=== PATIENT | female | born 1945 | race Caucasian/White ===

== ENCOUNTER 2020-11-14 13:09 | Emergency (ER) | payer MEDICARE, BC ==
[2020-11-14 14:05] LABS: #Basophils 0.1 thou/uL (0.0-0.2); #Eosinphils 0.3 thou/uL (0.0-0.7); #Lymphocytes 0.8 thou/uL (1.20-3.40); #Monocytes 0.5 thou/uL (0.11-0.59); #Neutrophils 4.9 thou/uL (1.40-6.50); %Eosinophils 4.4 % (0.0-10.0); %Lymphocytes 12.1 % (21.0-51.0); %Monocytes 7.2 % (0.0-10.0); %Neutrophils 75.3 % (42.0-75.0); Hemoglobin 12.2 g/dL (12.0-16.0); Mean Corpuscular HGB CONC 33.4 g/dL (32.0-36.0); Mean Corpuscular Hemoglobin 30.6 pg (27.0-31.0); Mean Corpuscular Volume 91.7 fL (78.0-98.0); Mean Platelet Volume 8.9 fL (7.4-10.4); Platelet Count 211 thou/uL (130-400); RBC Distribution Width 10.7 % (11.5-14.5); Red Blood Cell (RBC) Count 3.98 mill/uL (4.20-5.40); White Blood Cell (WBC) Count 6.5 thou/uL (4.8-10.8)
[2020-11-14] MEDS ORDERED: Aspirin Chewable 81 MG TAB ONE (14:17)
[2020-11-14 14:38] LABS: ALT (SGPT) 12 U/L (8-55); AST (SGOT) 17 U/L (5-34); Albumin 4.4 g/dL (3.4-4.8); Alkaline Phosphatase 54 U/L (40-110); Anion Gap 15 mmol/L (10-20); BUN (Urea Nitrogen) 28 mg/dL (9.8-20.1); Bilirubin, Total 0.7 mg/dL (0.2-1.2); CK (CPK) 48 U/L (29-168); Calc. Creatinine Clearance 0 mL/min (70-130); Calcium 9.6 mg/dL (7.8-10.44); Carbon Dioxide 25 mmol/L (23-31); Chloride 96 mmol/L (98-107); Globulin 2.3 g/dL (2.4-3.5); Glucose 96 mg/dL (83-110); Potassium 4.6 mmol/L (3.5-5.1); Protein, Total 6.7 g/dL (5.8-8.1); Sodium 131 mmol/L (136-145)
== END 2020-11-14 16:30 | disposition short-term general hospital (02) ==
LOC: MADERS 13:09
DX: R00.1 Bradycardia, unspecified (principal); M81.0 Age-related osteoporosis without current pathological fracture; Z79.82 Long term (current) use of aspirin; Z79.899 Other long term (current) drug therapy
CPT/HCPCS: 71045; 80053; 82550; 83605; 84484; 85025; 93005

== ENCOUNTER 2022-03-09 14:13 | Emergency (ER) | payer MEDICARE, BC ==
[2022-03-09] MEDS ORDERED: hydrALAZINE 10 MG TAB ONE ×2 (15:41→17:30)
[2022-03-09 17:02] LABS: ALT (SGPT) 16 U/L (8-55); AST (SGOT) 24 U/L (5-34); Albumin 4.4 g/dL (3.4-4.8); Alkaline Phosphatase 69 U/L (40-110); Anion Gap 13 mmol/L (10-20); BUN (Urea Nitrogen) 21 mg/dL (9.8-20.1); Bilirubin, Total 0.8 mg/dL (0.2-1.2); Calc. Creatinine Clearance 0 mL/min (70-130); Calcium 9.5 mg/dL (7.8-10.44); Carbon Dioxide 27 mmol/L (23-31); Chloride 99 mmol/L (98-107); Estimated GFR 50; Globulin 2.4 g/dL (2.4-3.5); Glucose 89 mg/dL (83-110); Potassium 4.5 mmol/L (3.5-5.1); Protein, Total 6.8 g/dL (5.8-8.1); Sodium 134 mmol/L (136-145)
[2022-03-09 19:03] LABS: Bilirubin Negative (Negative); Blood, Urine Negative (Negative); Clarity Clear (Clear); Glucose, Urine (Dipstick) Negative (Negative); Ketone, Urine Negative (Negative); Leukocyte Trace (Negative); Nitrite Negative (Negative); Protein, Urine (Dipstick) Negative (Neg-Trace); Specific Gravity, Urine 1.015 (1.005-1.030); Urobilinogen 0.2 mg/dL (Less than 2)
[2022-03-09 19:13] LABS: Bacteria/HPF Rare-Few HPF (None Seen); RBC/HPF 0-3 HPF (0-3); Squamous Epithelial 0-3 HPF (0-3); WBC/HPF 0-3 HPF (0-3)
[2022-03-09] MEDS ORDERED: Acetaminophen 500 MG TAB ONE (19:15)
== END 2022-03-09 19:39 | disposition home or self-care (01) ==
LOC: MADERS 14:13
DX: I10 Essential (primary) hypertension (principal); Z79.82 Long term (current) use of aspirin; Z79.899 Other long term (current) drug therapy
CPT/HCPCS: 36415; 70450; 80053; 81003; 81015

== ENCOUNTER 2022-11-25 09:50 | Emergency (ER) | payer MEDICARE, BC ==
[2022-11-25] MEDS ORDERED: Loperamide HCl 2 MG CAP ONE (11:13)
[2022-11-25] MEDS ORDERED: Sodium Chloride 0.9% 1,000 ML ONE ×2 (11:13→12:08)
[2022-11-25] MEDS ORDERED: Acetaminophen 325 MG TAB ONE (11:13)
[2022-11-25] MEDS ORDERED: Ondansetron PF 4 MG/2 ML Vial ONE (11:13)
[2022-11-25 11:26] LABS: #Lymphocytes 0.5 thou/uL (1.20-3.40); #Monocytes 0.3 thou/uL (0.11-0.59); #Neutrophils 3.5 thou/uL (1.40-6.50); %Basophils 0.7 % (0.0-1.0); %Lymphocytes 11.7 % (21.0-51.0); %Monocytes 6.4 % (0.0-10.0); %Neutrophils 81.3 % (42.0-75.0); Hematocrit 33.4 % (36.0-47.0); Hemoglobin 11.8 g/dL (12.0-16.0); Mean Corpuscular HGB CONC 35.3 g/dL (32.0-36.0); Mean Corpuscular Hemoglobin 31.2 pg (27.0-31.0); Mean Corpuscular Volume 88.3 fl (78.0-98.0); Mean Platelet Volume 10.3 fL (7.4-10.4); Platelet Count 143 10x3/uL (130-400); RBC Distribution Width 11.5 % (11.5-14.5); Red Blood Cell (RBC) Count 3.78 mill/uL (4.20-5.40); White Blood Cell (WBC) Count 4.3 10x3/uL (4.8-10.8)
[2022-11-25 11:37] LABS: ALT (SGPT) 16 U/L (8-55); AST (SGOT) 29 U/L (5-34); Albumin 4.2 g/dL (3.4-4.8); Alkaline Phosphatase 59 U/L (40-110); Anion Gap 17 mmol/L (10-20); BUN (Urea Nitrogen) 13 mg/dL (9.8-20.1); Bilirubin, Total 0.5 mg/dL (0.2-1.2); Calc. Creatinine Clearance 0 mL/min (70-130); Calcium 8.8 mg/dL (7.8-10.44); Carbon Dioxide 23 mmol/L (23-31); Chloride 84 mmol/L (98-107); Estimated GFR 61; Globulin 2.4 g/dL (2.4-3.5); Glucose 124 mg/dL (83-110); Potassium 2.8 mmol/L (3.5-5.1); Protein, Total 6.6 g/dL (5.8-8.1); Sodium 121 mmol/L (136-145)
[2022-11-25] MEDS ORDERED: Potassium Chloride 20 MEQ TAB ONE (12:07)
== END 2022-11-25 17:30 | disposition short-term general hospital (02) ==
LOC: MADERS 09:50
DX: U07.1 COVID-19 (principal); E87.1 Hypo-osmolality and hyponatremia; E87.6 Hypokalemia
CPT/HCPCS: 36415; 80053; 85025; 96361; 96374; J2405; J7050

== ENCOUNTER 2024-02-12 18:37 | Emergency (ER) | payer MEDICARE, BC ==
[2024-02-12] MEDS ORDERED: dilTIAZem 25 MG/5 ML VIAL ONE (19:29)
[2024-02-12 19:34] LABS: #Basophils 0.1 thou/uL (0.0-0.2); #Eosinophils 0.1 thou/uL (0.0-0.7); #Lymphocytes 1.1 thou/uL (1.20-3.40); #Monocytes 0.4 thou/uL (0.11-0.59); #Neutrophils 4.2 thou/uL (1.40-6.50); %Basophils 1.6 % (0.0-1.0); %Eosinophils 1.5 % (0.0-10.0); %Neutrophils 71.9 % (42.0-75.0); Hematocrit 42.2 % (36.0-47.0); Hemoglobin 13.3 g/dL (12.0-16.0); Mean Corpuscular HGB CONC 31.5 g/dL (32.0-36.0); Mean Corpuscular Hemoglobin 27.7 pg (27.0-31.0); Mean Corpuscular Volume 87.9 fl (78.0-98.0); Mean Platelet Volume 9.6 fL (7.4-10.4); Platelet Count 228 10x3/uL (130-400); RBC Distribution Width 13.1 % (11.5-14.5); White Blood Cell (WBC) Count 5.9 10x3/uL (4.8-10.8)
[2024-02-12 19:50] LABS: Anion Gap 19 mmol/L (10-20); BUN (Urea Nitrogen) 31 mg/dL (9.8-20.1); Calc. Creatinine Clearance 0 mL/min (70-130); Calcium 9.3 mg/dL (7.8-10.44); Carbon Dioxide 20 mmol/L (23-31); Chloride 101 mmol/L (98-107); Estimated GFR 41; Glucose 95 mg/dL (83-110); Magnesium 2.2 mg/dL (1.6-2.6); Potassium 4.5 mmol/L (3.5-5.1); Sodium 135 mmol/L (136-145)
[2024-02-12 19:51] LABS: Troponin I Less than 0.010 ng/mL (< 0.028)
[2024-02-12] MEDS ORDERED: hydrALAZINE 10 MG TAB ONE (21:17)
== END 2024-02-12 21:28 | disposition home or self-care (01) ==
LOC: MADERS 18:37
DX: I47.19 Other supraventricular tachycardia (principal); I10 Essential (primary) hypertension; Z79.01 Long term (current) use of anticoagulants
CPT/HCPCS: 71045; 80048; 83735; 84484; 85025; 96374